=== PATIENT | male | born 1975 | race Caucasian/White ===

== ENCOUNTER 2018-04-08 09:56 | Emergency (ER) | payer BC ==
[2018-04-08] MEDS: LIDOCAINE/MYLANTA 40 ML BTL PO (10:49)
[2018-04-08] MEDS: PANTOPRAZOLE (EC) 40 MG TAB PO (10:49)
== END 2018-04-08 12:05 | disposition home or self-care (01) ==
LOC: E/R 09:56
DX: R10.12 Left upper quadrant pain (principal)
CPT/HCPCS: 99283